=== PATIENT | male | born 1990 | race Caucasian/White ===

== ENCOUNTER 2018-12-19 15:52 | Emergency (ER) | payer BC ==
--- OUTSIDE RECORDS SUMMARY | 2018-12-19 15:57 | XMS REPORT | Continuity of Care Document ---
:1990 Author Organization [facility] Address [address], [place] [id number] Phone Care Team Providers Name Role Phone Saundra LINK CUTTERFrancisca Unavailable Unavailable [facility], NURSE OR MA Unavailable Unavailable Allergies, Adverse Reactions, Alerts Substance Reaction Status No Known Allergies Active Medications Medication Instructions Dosage Effective Dates (start - stop) Status Comments No Drug Therapy Prescribed Problems Condition Effective Dates (start - Clinical Status Comments stop) Human immunodeficiency virus [HIV] - counseling Encounter for screening for human - immunodeficiency virus Human immunodeficiency virus [HIV] - counseling Encounter for screening for human - immunodeficiency virus Encntr screen for infections w sexl mode of transmiss Human immunodeficiency virus [HIV] - counseling Encounter for screening for human - immunodeficiency virus Human immunodeficiency virus [HIV] - counseling Encounter for screening for human - immunodeficiency virus Encntr screen for infections w sexl mode of transmiss Procedures Procedure Date PREVENTIVE COUNSELING, 8-14 Minutes HIV-1/HIV-2, SINGLE ASSAY [facility] [facility].Svc. STI INJECTION OR LAB ONLY VISIT EST OTHER Medical Services Results Test Name Date and Time Measure Units Reference Range Abnormal Flag Status Comments No information Advance Directives Directive Yes / No Effective Date File Name No information Encounters Encounter Practice Location Reason(s) Diagnoses Date Provider Providers Description For Visit Copied on Encounter PREVENTIVE [facility] Nov- Saundra Referring COUNSELING, [facility] [place] immunodeficiency 7- Francisca. Provider: 8-14 Minutes Southern virus [HIV] [address] [facility] [place] Bianca [place], [address], [address] [place] human [place] [address] [place], [place] [address], [place], [address]. [id number], [place]. tel: [place] tel: [phone] tel: [phone] sulting [phone] Provider: NURSE OR MA [facility]. [facility] Higinio-2 Saundra Referring [facility] [place] immunodeficiency 4-201 Francisca. Provider: Southern virus [HIV] [address] [facility] [place] Saundra Khalil [facility], [address], [address] [place] human [place] [address] [place], [place], [place] [address], [place], [address]. [id number], [place]. tel: [place] tel: [phone] tel: [phone] [facility] Encntr screen for Higinio-0 White Referring [facility] [place] infections w sexl [place]. Provider: Southern mode of [address] trans[place], [address], [address] [place] virus [HIV] [place], St, [place], [place], [place] [address], [place], [address]. [id number], human [place]. [place] immunodeficiency tel:+ [phone] [facility] Dec- Saundra Referring [facility] [place] immunodeficiency 9- Franc[place]a. Provider: Southern virus [HIV] [address] [facility] [place] Khalil [facility], [address] [place], [address], [place] screen [address], [place], [address]. [id number], for infections w [place]. tel:+[phone] [place] sexl mode of tel: [phone] tel:[phone] transmiss [phone] Family History Family Member Diagnosis Age At Onset No information Immunizations Vaccine Date Status Comments No information Payers Payer name Insurance type Covered constitution party ID Authorization(s) [facility] [id number] Social History Type Description Quantity Date Captured Comments Alcohol Use Details Unknown Caffeine Use Details Unknown Tobacco Use Status Unknown Smoking Status Former smoker Non-Smoking Tobacco : No Details Available : No Details Available 2018 Use Details Sex Male Vital Signs Date / Height Weight BMI Pulse Blood Temperature Respiratory Body Head BMI Pulse Inhaled Time: Rate Pressure Rate Surface Circumference percentile Ox Ox Area No information Chief Complaint And Reason For Visit No information Reason For Referral Reason For Referral No information Plan Of Treatment Date Type Action Status No information History Of Present Illness Encounter Date Complaint History Of Present Illness No information Functional Status Date Functional Assessment No information Medications Administered Medication Instructions Dosage Effective Dates (start - stop) Status Comments No Drug Therapy Prescribed Instructions Date Instruction Additional Information No information Assessments Type Assessment Date assessment Human immunodeficiency virus [HIV] counseling assessment Encounter for screening for human immunodeficiency virus 2018 Goals Health Concern Goal Type Priority Status Date No information Medical Equipment Description Device [place] Device Identifier Effective Dates (start - stop ) Status No information Mental Status Date Cognitive Assessment No information Health Concerns Observation Date No information Concern Status Date No information
[2018-12-19 16:00] VITALS: BP 172/83
--- NOTE | 2018-12-19 16:02 | UC ---
Respiratory Complaint HPI - HPI Summary HPI Summary: 28 y/o male presents to the urgent care c/o C/O FEELING "WINDED" FOR ~1 WEEK, WORSE WITH EXERTION. HX ASTHMA CHILD. STATES HIS "LUNGS HURT" WITH DEEP INSIRATION. HAS ALSO HAD SLIGHT COUGH. - History of Current Complaint Chief Complaint: UCRespiratory Stated Complaint: COUGH Time Seen by Provider: 12/19/18 16:01 Hx Obtained From: Patient Pain Intensity: 3 - Allergies/Home Medications Allergies/Adverse Reactions: Allergies Allergy/AdvReac Type Severity Reaction Status Date / Time bee venom protein (honey bee) Allergy Severe Anaphylatic Verified 12/19/18 16:00 Shock Home Medications: Home Medications Pseudoephedrine TAB* [Sudafed TAB*] 60 mg PO PRN 12/19/18 [History] PMH/Surg Hx/FS Hx/Imm Hx - Surgical History Surgical History: Yes Surgery Procedure, Year, and Place: APPENDECTOMY - Family History Known Family History: Negative: Cardiac Disease, Respiratory Disease - Social History Alcohol Use: None Substance Use Type: None Substance Use Comment - Amount & Last Used: daily to sleep Smoking Status (MU): Current Every Day Smoker Amount Used/How Often: VAPES Physical Exam - Summary Physical Exam Summary: Vital Signs Reviewed: Yes General: well developed, well nourished male sitting in the examining table w/o any apparent distress Eyes: Positive: Conjunctiva Clear - PERRLA, EOMI, fundi grossly normal ENT: Positive: Normal ENT inspection, Hearing grossly normal, Pharynx normal, Nasal congestion - edematous and erythematous nasal mucosa, Nasal drainage - yellowish drainage, TMs normal. Negative: Tonsillar swelling, Tonsillar exudate Neck: Positive: Supple, Nontender, No Lymphadenopathy Respiratory: no orthopnea or dyspnea. Able to speak in full sentences, no retractions or accessory muscle use, no tripod position, stridor, or head bobbing. Positive breath sounds bilaterally. diffuse scattered wheezing and rhonchi on b/L lungs, no crackles or rales. Cardiovascular: Positive: RRR, No Murmur, Pulses Normal, Brisk Capillary Refill Abdomen Description: Positive: Nontender, No Organomegaly, Soft. Negative: CVA Tenderness (R), CVA Tenderness (L) Bowel Sounds: Positive: Present Musculoskeletal Exam: Normal Musculoskeletal: Positive: Strength Intact, ROM Intact, No Edema Neurological Exam: Normal Psychological Exam: Normal Skin Exam: Normal Triage Information Reviewed: Yes Vital Signs: Initial Vital Signs Temp 98.5 F 12/19/18 15:56 Pulse 87 12/19/18 15:56 Resp 16 12/19/18 15:56 BP 172/83 12/19/18 15:56 Pulse Ox 100 12/19/18 15:56 Respiratory Course/Dx - Differential Dx/Diagnosis Differential Diagnosis/HQI/PQRI: Asthma, Bronchitis, Influenza, Lower Resp Infection, Sinusitis Provider Diagnosis: Bronchitis, Asthma exacerbation, Elevated BP without diagnosis of hypertension Discharge - Sign-Out/Discharge Documenting (check all that apply): Patient Departure - d/C home All imaging exams completed and their final reports reviewed: Yes - Discharge Plan Condition: Stable Disposition: HOME Prescriptions: Albuterol HFA INHALER* [Ventolin HFA Inhaler*] 1 - 2 puff INH Q6H PRN #1 mdi PRN Reason: Wheezing Azithromyxin PARAS (NF) [Z-Paras (Zithromax) 250 mg tabs #6] 2 tab PO .TODAY, THEN 1 DAILY #6 tab predniSONE TAB* [Deltasone 20 MG TAB*] 20 mg PO DAILY #8 tab Patient Education Materials: Asthma (ED), Acute Bronchitis (ED) Referrals: Mandy Andrade NP [Primary Care Provider] - 3 Days Additional Instructions: 1- Take Prednisone PO taper dose as directed starting tomorrow. First loading dose given today. Take the Z-paras PO as directed to alleviate bronchitis 2-Use albuterol inhaler w/ aerochamber to alleviate SOB, and wheezing as directed . Increase fluid intake, rest and eat well. 3- If symptoms do not improve or worsen or your develop SOB with fever and severe wheezing please go immediately to the ER further evaluation and treatment. 4- F/u with your PCP in 2-3 days for further management on your Asthma 5-Your BP is elevated today. Please take your BP medications and decrease salt in your diet, monitor BP and if it continues to be elevated please f/u with your PCP for further management. If you develop chest pain, dizziness, visual disturbances, SOB, or severe GARRETT please go immediately to the ER for further management - Billing Disposition and Condition Condition: STABLE Disposition: Home
[2018-12-19] MEDS ORDERED: Albuterol/Ipratropium NEB.SOL* Albuterol 2.5 MG/Ipratropium 0.5 MG 3 ML INH ONE (16:25)
[2018-12-19] MEDS ORDERED: predniSONE TAB* 20 MG PO ONE (16:25)
== END 2018-12-19 17:15 | disposition home or self-care (01) ==
LOC: UCEAST 15:52
DX: J45.901 Unspecified asthma with (acute) exacerbation (principal); R03.0 Elevated blood-pressure reading, without diagnosis of hypertension; F17.200 Nicotine dependence, unspecified, uncomplicated; Z91.030 Bee allergy status
CPT/HCPCS: 71046; 87651; 99212; A9270-GY; G0463; J7512

== ENCOUNTER 2019-08-22 20:53 | Observation (INO) | payer BC ==
[2019-08-22 21:37] LABS: ABS Basophils 0.1 10^3/ul (0-0.2); ABS Eosinophils 0.2 10^3/ul (0-0.6); ABS Lymphocytes 2.9 10^3/ul (1.0-4.8); ABS Monocytes 0.7 10^3/ul (0-0.8); ABS Neutrophils 5.7 10^3/ul (1.5-7.7); Eosinophil % 1.7 %; Hematocrit 44 % (42-52); Lymphocyte % 30.4 %; Mean Corpuscular HGB Conc 34 g/dL (31-36); Mean Corpuscular Hemoglobin 32 pg (27-31); Mean Corpuscular Volume 94 fL (80-94); Mean Platelet Volume 7.1 fL (7.4-10.4); Nucleated Red Blood Cells % 0.1; Platelet Count 308 10^3/uL (150-450); Red Blood Count 4.67 10^6 /uL (4.18-5.48); Red Cell Distribution Width 13 % (10-15); White Blood Count 9.5 10^3/uL (3.5-10.8)
[2019-08-22 21:53] LABS: Albumin 4.8 g/dL (3.2-5.2); BUN/Creatinine Ratio 14.4 (8-20); Calcium 9.5 mg/dL (8.6-10.3); EGFR African American 123.4 (>60); Globulin 2.4 g/dL (2-4); Potassium 3.8 mmol/L (3.5-5.0); Total Bilirubin 0.2 mg/dL (0.2-1.0); Total Protein 7.2 g/dL (6.4-8.9)
--- NOTE | 2019-08-22 22:00 | ED ---
HPI Cardiac - HPI Summary HPI Summary: Pt is a 28 y/o M presenting to the ED with a chief complaint of chest pain initially onset with a URI about 1 week ago. He reports nml URI sx, including slightly productive cough with yellow mucous, nasal congestion, rhinorrhea, and some SOB. Since about 2 days ago, hes had episodes of sharp pain in the L side of his chest accompanied by palpitations and shortness of breath. The pain radiates to his back. He thought it was pneumonia so he went to urgent care where they did an EKG and told him to come here. Sx aggravated by smoking and deep breaths. Denies edema or pain in legs. Hx asthma. - History of Current Complaint Chief Complaint: EDChestPainROMI Stated Complaint: DIFFICULTY BREATHING PER PT Time Seen by Provider: 08/22/19 21:50 Hx Obtained From: Patient Onset/Duration: Started Days Ago, Still Present Timing: Intermittent, Lasting Hours Initial Severity: Mild Current Severity: None Pain Intensity: 0 Pain Scale Used: 0-10 Numeric Chest Pain Location: Left Anterior Chest Pain Radiates: No Character: Sharp/Stabbing, Other: - palpitations Aggravating Factor(s): Deep Breaths, Other: - smoking Alleviating Factor(s): Nothing Associated Signs and Symptoms: Positive: Chest Pain, Shortness of Breath, Lightheadedness, Palpitations, Productive Cough, Nasal Congestion. Negative: Calf Pain/Swelling - Allergy/Home Medications Allergies/Adverse Reactions: Allergies Allergy/AdvReac Type Severity Reaction Status Date / Time bee venom protein (honey bee) Allergy Severe Anaphylatic Verified 08/22/19 20:58 Shock PMH/Surg Hx/FS Hx/Imm Hx Previously Healthy: Yes Endocrine/Hematology History: Denies: Hx Diabetes Cardiovascular History: Denies: Hx Hypertension, Hx Pacemaker/ICD Respiratory History: Reports: Hx Asthma - CHILDHOOD Denies: Hx Chronic Obstructive Pulmonary Disease (COPD) History: Denies: Hx Renal Disease Neurological History: Denies: Hx Seizures Psychiatric History: Denies: Hx Substance Abuse - Surgical History Surgery Procedure, Year, and Place: APPENDECTOMY Infectious Disease History: No Infectious Disease History: Denies: Hx Hepatitis, Hx Human Immunodeficiency Virus (HIV), Traveled Outside the [place] in Last 30 Days - Family History Known Family History: Negative: Cardiac Disease, Respiratory Disease - Social History Alcohol Use: None Hx Substance Use: Yes Substance Use Type: Reports: Cocaine, Marijuana Substance Use Comment - Amount & Last Used: daily to sleep Hx Tobacco Use: Yes Smoking Status (MU): Heavy Every Day Tobacco Smoker Amount Used/How Often: VAPES Review of Systems Positive: Nasal Discharge Positive: Palpitations, Chest Pain Positive: Shortness Of Breath, Cough Negative: Myalgia, Edema Neurological: Other - slight lightheadedness All Other Systems Reviewed And Are Negative: Yes Physical Exam - Summary Physical Exam Summary: Appearance: Well-appearing, Well-nourished, lying in bed comfortably Skin: Warm, dry, no obvious rash Eyes: sclera anicteric, no conjunctival pallor ENT: mucous membranes moist, pharynx appears normal Neck: Supple, nontender Respiratory: Diffuse expiratory wheezes bilaterally, no signs of respiratory distress Cardiovascular: Irregularly irregular rhythm that is somewhat fast. Normal distal pulses in tibial and radial bilaterally. Abdomen: Soft, nontender, normal active bowel sounds present Musculoskeletal: Normal, Strength/ROM Intact Neurological: A&Ox3, awake and alert, mentation is normal, speech is fluent and appropriate Psychiatric: affect is normal, does not appear anxious or depressed Triage Information Reviewed: Yes Vital Signs On Initial Exam: Initial Vitals Temp Pulse Resp BP Pulse Ox 98.3 F 111 16 150/104 99 08/22/19 20:54 08/22/19 20:54 08/22/19 20:54 08/22/19 20:54 08/22/19 20:54 Vital Signs Reviewed: Yes Procedures - Sedation Patient Received Moderate/Deep Sedation with Procedure: No Diagnostics - Vital Signs Vital Signs Temp Pulse Resp BP Pulse Ox 08/22/19 20:54 98.3 F 111 16 150/104 99 - Laboratory Lab Results: Lab Results 08/22/19 08/22/19 08/22/19 Range/Units 21:29 21:30 21:30 WBC 9.5 (3.5-10.8) 10^3/uL RBC 4.67 (4.18-5.48) 10^6 /uL Hgb 15.0 (14.0-18.0) g/dL Hct 44 (42-52) % MCV 94 (80-94) fL MCH 32 H (27-31) pg MCHC 34 (31-36) g/dL RDW 13 (10-15) % Plt Count 308 (150-450) 10^3/uL MPV 7.1 L (7.4-10.4) fL Neut % (Auto) 59.3 % Lymph % (Auto) 30.4 % Rock % (Auto) 7.4 % Eos % (Auto) 1.7 % Baso % (Auto) 1.2 % Absolute Neuts (auto) 5.7 (1.5-7.7) 10^3/ul Absolute Lymphs (auto) 2.9 (1.0-4.8) 10^3/ul Absolute Monos (auto) 0.7 (0-0.8) 10^3/ul Absolute Eos (auto) 0.2 (0-0.6) 10^3/ul Absolute Basos (auto) 0.1 (0-0.2) 10^3/ul Absolute Nucleated RBC 0.0 10^3/ul Nucleated RBC % 0.1 Sodium 140 (135-145) mmol/L Potassium 3.8 (3.5-5.0) mmol/L Chloride 103 (101-111) mmol/L Carbon Dioxide 28 (22-32) mmol/L Anion Gap 9 (2-11) mmol/L BUN 13 (6-24) mg/dL Creatinine 0.90 (0.67-1.17) mg/dL Est GFR ( Amer) 123.4 (>60) Est GFR (Non-Af Amer) 102.0 (>60) BUN/Creatinine Ratio 14.4 (8-20) Glucose 108 H (70-100) mg/dL Lactic Acid 0.8 (0.5-2.0) mmol/L Calcium 9.5 (8.6-10.3) mg/dL Total Bilirubin 0.20 (0.2-1.0) mg/dL AST 14 (13-39) U/L ALT 8 (7-52) U/L Alkaline Phosphatase 56 (34-104) U/L Troponin I Pending Total Protein 7.2 (6.4-8.9) g/dL Albumin 4.8 (3.2-5.2) g/dL Globulin 2.4 (2-4) g/dL Albumin/Globulin Ratio 2.0 (1-3) TSH Pending Result Diagrams: 08/22/19 21:30 08/22/19 21:29 Lab Statement: Any lab studies that have been ordered have been reviewed, and results considered in the medical decision making process. - Radiology CXR Radiology Interpretation Completed By: ED Physician Summary of Radiographic Findings: No acute process. Pending official radiology report. - CT CTA Chest/Thorax CT Interpretation Completed By: Radiologist Summary of CT Findings: No acute findings. ED physician has reviewed this report. - EKG 2101 Cardiac Rate: Other Rate - 111bpm EKG Rhythm: Atrial Fibrillation ST Segment: Other Ectopy: None Summary of EKG Findings: EKG at 2101 shows atrial fibrillation at 111 BPM, P waves, QRS complex, ST elevations, T waves and intervals are normal, no ischemic changes. Consistent with EKG done at . ED physician has reviewed and interpreted this EKG. Disposition - Course Course Of Treatment: Pt is a 28 y/o M presenting to the ED with a chief complaint of chest pain initially onset with a URI about 1 week ago. He reports nml URI sx, including slightly productive cough with yellow mucous, nasal congestion, rhinorrhea, and some SOB. Since about 2 days ago, hes had episodes of sharp pain in the L side of his chest accompanied by palpitations and shortness of breath. Sx aggravated by smoking and deep breaths. Denies edema or pain in legs. Hx asthma. Physical exam shows irregularly irregular rhythm that is slightly fast. CXR shows no acute process, pending official radiology report. EKG at 2101 shows atrial fibrillation at 111 BPM, P waves, QRS complex , ST elevations, T waves and intervals are normal, no ischemic changes. Consistent with EKG done at . ED physician has reviewed and interpreted this EKG. CTA Chest/Thorax shows no acute findings. I spoke with Dr. Sparrow about the pt's presenting condition at 0137. She will evaluate pt for admission in the ED. Dx is AFib w/ RVR. - Diagnoses Provider Diagnoses: Atrial fibrillation with RVR - Physician Notifications Discussed Care Of Patient With: Kay Sparrow Time Discussed With Above Provider: 01:37 Instructed by Provider To: Admit As Inpatient - Critical Care Time Critical Care Time: 30-74 min - 30min Discharge ED - Sign-Out/Discharge Documenting (check all that apply): Patient Departure - Discharge Plan Condition: Stable Disposition: ADMITTED TO [facility] - Billing Disposition and Condition Condition: STABLE Disposition: Admitted to [facility] - Attestation Statements Document Initiated by Young: Yes Documenting Scribe: Pilar Trejo Provider For Whom Young is Documenting (Include Credential): Asim Arnold MD. Scribe Attestation: Pilar Cross, coreyed for Asim Arnold MD. on 08/23/19 at 0317. Scribe Documentation Reviewed: Yes Provider Attestation: The documentation as recorded by the coreye, Pilar Trejo accurately reflects the service I personally performed and the decisions made by me, Asim Arnold MD. Status of Scribe Document: Viewed
[2019-08-22 22:08] LABS: TSH (Thyroid Stimulating Horm) 1.18 mcIU/mL (0.34-5.60)
[2019-08-22] MEDS ORDERED: Albuterol 2.5 MG/3 ML NEB.SOL* (0.083%) INH ONE (22:41)
[2019-08-22] MEDS ORDERED: methylPREDNISolone 125 MG* 2 ML VIAL IV ONE (22:41)
[2019-08-23] MEDS ORDERED: Diltiazem IV push/loading dose 5 MG/ML 5 ML vial (25 mg) IV SLOW PU ONE (00:03)
[2019-08-23] MEDS ORDERED: Diltiazem IV BAG* D5W Premix 125 MG/125 ML BAG IV ONE (00:03)
[2019-08-23] MEDS ORDERED: Iohexol 350* (CONTRAST) 500 ML MDV IV ONE (00:15)
[2019-08-23] MEDS: Nicotine* 2MG (FRUIT FLAVOR) GUM PO PRN ×2 (03:17→09:27)
--- NOTE | 2019-08-23 03:39 | HP ---
History of Present Illness - History of Present Illness Reason for Visit: chest pain History of Present Illness: 28 yo male with hx of drug abuse came in with complaints of left sided pleuritic chest pain. Chest pain started 2 days ago after he was binge drinking and snorted a few lines of cocaine.He had been sober for 10 years before this relapse, and he thought he did too many drugs at once which is why his chest was hurting. Because the pain persister past 2 days after his one time use, he came to the ED to be evaluated. He was worried he was developing a PNA especially since he has been having some Upper respiratory symptoms for a while. Pt found to be in Afib with RVR in the ED with elevated blood pressure. CTA rule out PE. EKG showed possible ST elevation vs early repolarization. Initial Troponins are flat. - Past Medical History Psych: Addictions - Past Surgical History Past Surgical History: None - Past Family History Family History: CAD - Past Social History Smoke: No Drugs: Cocaine Lives: Alone Review of Systems - Measurements Intake and Output: Intake and Output Last 24 Hours 08/20/19 08/21/19 08/22/19 08/23/19 06:59 06:59 06:59 06:59 Weight 185 lb - Review of Systems Constitutional Symptoms: Negative: Weight Gain, Weight Loss, Weakness, Fatigue, Fever, Night Sweats, Unexplained Falls, Other Dermatology: Negative: Normal, Rash, Skin Lesions, Cancer, Skin Lumps, Other HEENT: Negative: Normal, Change in Hearing, Vertigo, Dental Problems, Tinnitus, Sinus Problem, Other Eyes: Negative: Normal, Change in Vision, Double Vision, Eye Pain, Glaucoma, Cataract, Contacts or Glasses, Other Thyroid: Negative: Normal, Goiter, Thyroid Nodule, Cold Intolerance, Heat Intolerance , Sweatiness, Tremor, Frequent Defecation, Constipation, Palpitations, Primary Hypothyroidism, Primary Hyperthyroidism, Weight Loss, Weight Gain, Change in Skin/Hair, Change in Menstruation, Radiation Exposure, Other Pulmonary: Positive: Cough Cardiology: Positive: Chest Pain, Shortness of Breath, Palpitations Gastroenterology: Negative: Normal, Abdominal Pain, Nausea, Vomiting, Anorexia, Indigestion, Difficulty Swallowing, Heartburn, Constipation, Diarrhea, Blood in Stools, Change in Bowel Habits, Haematemesis, Melena, Other Genital - Urinary: Negative: Normal, Dysuria, Hematuria, Polyuria, Nocturia, Other Neurology: Negative: Normal, Headache, Migraines, Change in Vision, Diplopia, Dizziness , Change in Balancing, Change in Coordination, Change in Memory, Change in Speech, Change in Sphincter Function, Change in Walking, Numbness\Paresthesiae, Unexplained Weakness, Hx of Stroke\TIA, Hx of Seizures, Other Psychiatry: Negative: Normal, Depression, Anxiety, Depressed Mood, Anhedonia, Sexual Dysfunction, Weight Change, Guilt Feelings, Tearfulness, Unusual Fatigue, Unusual Anxiety, Suicidal Ideation, Hypomania, Eating Disorders, Other Objective Active Medications: Heparin Sodium (Porcine) (Heparin Vial(*)) 5,000 units SUBCUT Q8HR KALYN Diltiazem/Dextrose (Cardizem Iv D5w Bag* Premix) 125 mg in 125 mls @ 5 mls/hr IV ED ONCE ONE; Protocol Stop: 08/24/19 01:02 Last Admin: 08/23/19 00:58 Dose: 5 mls/hr Sodium Chloride (Ns 0.9% 1000 Ml) 1,000 mls @ 125 mls/hr IV Q8H AKLYN Nicotine Polacrilex (Nicotine Gum*) 2 mg PO Q2H PRN PRN Reason: CRAVING Last Admin: 08/23/19 03:17 Dose: 2 mg Vital Signs - 8 hr 08/22/19 08/22/19 08/22/19 20:54 21:22 21:23 Temperature 98.3 F Pulse Rate 111 104 115 Respiratory 16 24 17 Rate Blood Pressure 150/104 136/105 (mmHg) O2 Sat by Pulse 99 98 99 Oximetry 08/22/19 08/22/19 08/22/19 21:28 21:53 22:00 Temperature Pulse Rate 99 101 97 Respiratory 22 17 21 Rate Blood Pressure 139/86 140/105 (mmHg) O2 Sat by Pulse 99 98 99 Oximetry 08/22/19 08/22/19 08/22/19 22:23 23:03 23:23 Temperature Pulse Rate 94 115 124 Respiratory 36 18 Rate Blood Pressure 138/106 123/89 (mmHg) O2 Sat by Pulse 97 100 100 Oximetry 08/22/19 08/23/19 08/23/19 23:33 00:00 00:07 Temperature Pulse Rate 98 174 149 Respiratory 18 14 16 Rate Blood Pressure 154/103 (mmHg) O2 Sat by Pulse 99 100 100 Oximetry 1208/23/19 08/23/19 00:23 01:00 01:13 Temperature Pulse Rate 109 202 98 Respiratory 23 23 Rate Blood Pressure 132/88 136/89 (mmHg) O2 Sat by Pulse 100 100 97 Oximetry 08/23/19 08/23/19 08/23/19 01:18 01:22 01:33 Temperature Pulse Rate 115 112 106 Respiratory 20 20 Rate Blood Pressure 125/102 140/88 (mmHg) O2 Sat by Pulse 100 100 98 Oximetry 08/23/19 08/23/19 08/23/19 01:47 02:00 02:03 Temperature Pulse Rate 103 116 123 Respiratory 18 17 13 Rate Blood Pressure 146/88 128/75 (mmHg) O2 Sat by Pulse 96 98 96 Oximetry 08/23/19 08/23/19 08/23/19 02:17 02:32 02:48 Temperature Pulse Rate 118 123 124 Respiratory 18 19 19 Rate Blood Pressure 135/101 146/91 118/86 (mmHg) O2 Sat by Pulse 97 97 99 Oximetry 08/23/19 08/23/19 08/23/19 03:00 03:02 03:17 Temperature Pulse Rate 109 133 112 Respiratory 13 20 14 Rate Blood Pressure 125/84 125/80 (mmHg) O2 Sat by Pulse 97 98 97 Oximetry Appearance: NID Eyes: No Scleral Icterus, PERRLA Ears/Nose/Mouth/Throat: Mucous Membranes Moist Neck: NL Appearance and Movements; NL JVP, Trachea Midline Respiratory: Symmetrical Chest Expansion and Respiratory Effort, Clear to Auscultation, Clear to Percussion Cardiovascular: - - irregularly irreegular, tachycardia Abdominal: NL Sounds; No Tenderness; No Distention Lymphatic: No Cervical Adenopathy Extremities: No Edema, No Clubbing, Cyanosis Skin: No Rash or Ulcers, No Nodules or Sclerosis Neurological: Alert and Oriented x 3, NL Sensation, NL Gait, NL Muscle Strength and Tone Result Diagrams: 08/22/19 21:30 08/22/19 21:29 Additional Lab and Data: Lab Results 08/22/19 08/22/19 08/22/19 Range/Units 21:29 21:30 21:30 WBC 9.5 (3.5-10.8) 10^3/uL RBC 4.67 (4.18-5.48) 10^6 /uL Hgb 15.0 (14.0-18.0) g/dL Hct 44 (42-52) % MCV 94 (80-94) fL MCH 32 H (27-31) pg MCHC 34 (31-36) g/dL RDW 13 (10-15) % Plt Count 308 (150-450) 10^3/uL MPV 7.1 L (7.4-10.4) fL Neut % (Auto) 59.3 % Lymph % (Auto) 30.4 % [place] % (Auto) 7.4 % Eos % (Auto) 1.7 % Baso % (Auto) 1.2 % Absolute Neuts (auto) 5.7 (1.5-7.7) 10^3/ul Absolute Lymphs (auto) 2.9 (1.0-4.8) 10^3/ul Absolute Monos (auto) 0.7 (0-0.8) 10^3/ul Absolute Eos (auto) 0.2 (0-0.6) 10^3/ul Absolute Basos (auto) 0.1 (0-0.2) 10^3/ul Absolute Nucleated RBC 0.0 10^3/ul Nucleated RBC % 0.1 Sodium 140 (135-145) mmol/L Potassium 3.8 (3.5-5.0) mmol/L Chloride 103 (101-111) mmol/L Carbon Dioxide 28 (22-32) mmol/L Anion Gap 9 (2-11) mmol/L BUN 13 (6-24) mg/dL Creatinine 0.90 (0.67-1.17) mg/dL Est GFR ( Amer) 123.4 (>60) Est GFR (Non-Af Amer) 102.0 (>60) BUN/Creatinine Ratio 14.4 (8-20) Glucose 108 H (70-100) mg/dL Lactic Acid 0.8 (0.5-2.0) mmol/L Calcium 9.5 (8.6-10.3) mg/dL Total Bilirubin 0.20 (0.2-1.0) mg/dL AST 14 (13-39) U/L ALT 8 (7-52) U/L Alkaline Phosphatase 56 (34-104) U/L Troponin I Pending Total Protein 7.2 (6.4-8.9) g/dL Albumin 4.8 (3.2-5.2) g/dL Globulin 2.4 (2-4) g/dL Albumin/Globulin Ratio 2.0 (1-3) TSH Pending Assess/Plan/Problems-Billing Assessment: - Patient Problems (1) Atrial fibrillation with rapid ventricular response Current Visit: Yes Status: Acute Code(s): I48.91 - UNSPECIFIED ATRIAL FIBRILLATION SNOMED Code(s): 613907442380994 Comment: likely secondary to drug abuse. repeat EKG within a few hours Echo in the am drug screen pending. IVF aspirin, Cardizem drip (2) Full code status Current Visit: Yes Status: Acute Code(s): Z78.9 - OTHER SPECIFIED HEALTH STATUS SNOMED Code(s): 856944722 (3) DVT prophylaxis Current Visit: Yes Status: Acute Code(s): Z29.9 - ENCOUNTER FOR PROPHYLACTIC MEASURES, UNSPECIFIED SNOMED Code(s): 099697197 Comment: heparin sc (4) Drug abuse Current Visit: Yes Status: Acute Code(s): F19.10 - OTHER PSYCHOACTIVE SUBSTANCE ABUSE, UNCOMPLICATED SNOMED Code(s): 08220852 Comment: started in his early teens, stated he had bee sober for about 10 years until this recent relapse.
[2019-08-23] MEDS ORDERED: Nitroglycerin TAB 0.3 MG* 0.3 MG TAB SL PRN (03:46)
[2019-08-23] MEDS ORDERED: Aspirin 81 mg CHEW TAB* 81 MG TAB.CHEW PO ONE (03:46)
[2019-08-23] MEDS ORDERED: LORazepam INJ* 2 MG/ML 1 ML VIAL IV PUSH ONE (03:56)
[2019-08-23] MEDS ORDERED: Lorazepam PYXIS KEY PRN (03:56)
[2019-08-23 04:25] LABS: Urine Benzodiazepine Screen None Detected (None Detect); Urine Opiates Screen None Detected (None Detect)
[2019-08-23] MEDS ORDERED: NS 0.9% 1000 ML** 1,000 ML IV SCH (05:30)
[2019-08-23] MEDS ORDERED: Heparin VIAL(*) 5000 UNITS/ML VIAL (FIVE THOUSAND) SUBCUT SCH (06:00)
[2019-08-23 06:17] LABS: ABS Lymphocytes 0.7 10^3/ul (1.0-4.8); ABS Monocytes 0.1 10^3/ul (0-0.8); ABS Neutrophils 13.4 10^3/ul (1.5-7.7); ABS Nucleated RBC 0.1 10^3/ul; Hematocrit 44 % (42-52); Hemoglobin 15.1 g/dL (14.0-18.0); Mean Corpuscular HGB Conc 34 g/dL (31-36); Mean Corpuscular Hemoglobin 32 pg (27-31); Mean Corpuscular Volume 93 fL (80-94); Mean Platelet Volume 7.1 fL (7.4-10.4); Nucleated Red Blood Cells % 0.4; Platelet Count 332 10^3/uL (150-450); Red Blood Count 4.77 10^6 /uL (4.18-5.48); Red Cell Distribution Width 13 % (10-15); White Blood Count 14.3 10^3/uL (3.5-10.8)
[2019-08-23 06:19] LABS: BUN/Creatinine Ratio 16.3 (8-20); Calcium 9.6 mg/dL (8.6-10.3); EGFR African American 141.4 (>60); EGFR Non-African American 116.9 (>60)
[2019-08-23] MEDS ORDERED: NS 0.9% 1000 ML** 1,000 ML IV ONE (06:42)
[2019-08-23 09:38] VITALS: BP 126/88
[2019-08-23] MEDS ORDERED: Metoprolol Tartrate TAB* 25 MG PO SCH (10:00)
--- NOTE | 2019-08-23 11:50 | ECHO ---
*[facility]* [place] [address] Fax #: [phone] Transthoracic Echocardiogram Patient: Jose Sigala : 1990 Study Date: 08/23/2019 Age: 28 Gender: M HR: 80 bpm Height: 71 in /180.3 cm BSA: 2.04 m^2 Weight: 184.6 lb /83.9 kg BMI: 25.8 kg/m^2 *Nuclear Reactor Technician: * Ashely Nicole *Referring Physician: * Kay Sparrow *Reading Physician: * Michael Goff MD Indications: Chest Pain, unspecified. History: Risk factors: Cocaine abuse. Current tobacco use. Conclusions Summary: - Left ventricle: Systolic function is normal. The estimated ejection fraction is 60-65%. Wall motion is normal; there are no regional wall motion abnormalities. - Mitral valve: There is trace regurgitation. - Aortic valve: There is no evidence of stenosis. - Tricuspid valve: There is mild regurgitation. - Pulmonary arteries: Systolic pressure is within the normal range. - Study data: No prior study is available for comparison. Study data: Transthoracic echocardiogram. Procedure: Transthoracic echocardiography was performed. Image quality was excellent. Complete 2D, spectral Doppler, and color flow Doppler. Location: Bedside. Patient status: Inpatient. Patient room number: 449. No prior study is available for comparison. Findings Left ventricle: The cavity size is normal. Wall thickness is normal. Systolic function is normal. The estimated ejection fraction is 60-65%. Wall motion is normal; there are no regional wall motion abnormalities. Left ventricular diastolic function parameters are normal. Right ventricle: The cavity size is at the upper limits of normal. Wall thickness is normal. Systolic function is normal. Left atrium: The atrium is normal in size. Right atrium: The atrium is normal in size. Mitral valve: The valve is structurally normal. There is no evidence of stenosis. There is trace regurgitation. Aortic valve: The valve is trileaflet. The leaflets are normal thickness. There is no evidence of stenosis. There is no significant regurgitation. Tricuspid valve: The leaflets are normal thickness. There is no evidence of stenosis. There is mild regurgitation. Pulmonic valve: The leaflets are normal thickness. There is no evidence of stenosis. There is trace regurgitation. Aorta: The aortic arch appears normal. Pericardium: There is no pericardial effusion. Pulmonary arteries: Systolic pressure is within the normal range. Systemic veins: Inferior vena cava: The vessel is normal in size. Pulmonary veins: The Pulmonary veins appear normal. Measurements Left ventricle Value Ref Aortic valve Value Ref MARVEL, LAX 4.3 cm 4.2 - Peak v, S 1.22 m/sec ----- 5.8 VTI, S 26.2 cm ----- ESD, LAX 2.8 cm 2.5 - Mean grad, S 3.0 mm Hg ----- 4.0 Peak grad, S 6.0 mm Hg ----- FS, LAX 35 % 25 - 43 LIZBETH, VTI 3.13 cm^2 ----- PW, ED, LAX (H) 1.3 cm 0.6 - LIZBETH, Vmax 3.06 cm^2 ----- 1.0 E', lat kalyan, TDI 15.5 cm/sec >=10.0 Mitral valve Value Ref E/e', lat kalyan, TDI 6 -------- Peak E 0.96 m/sec -- --- E', med kalyan, TDI 14.5 cm/sec >=7.0 Peak A 0.44 m/sec ----- E/e', med kalyan, TDI 7 -------- Decel time 201 ms -- --- E', avg, TDI 15.0 cm/sec -------- Peak grad, D 3.7 mm Hg -- --- E/e', avg, TDI 6 <=14 Peak E/A ratio 2.2 ----- LVOT Value Ref Pulmonic valve Value Ref Diam, S 2.00 cm -------- Peak v, S 0.89 m/sec ----- Area 3.1 cm^2 -------- Peak grad, S 3.0 mm Hg ----- Peak jovanny, S 1.19 m/sec -------- Peak grad, S 6 mm Hg -------- Tricuspid valve Value Ref Mean grad, S 3 mm Hg -------- TR peak v 2.1 m/sec <=2. 8 SV 79 ml -------- Peak RV-RA grad, S 18 mm Hg ----- SV/bsa 39 ml/m^2 -------- Max TR jovanny 2.16 m/sec ----- Ventricular septum Value Ref Aortic root Value Ref IVS, ED (H) 1.4 cm 0.6 - Root diam 3.3 cm <3.7 1.0 Ascending aorta Value Ref Right ventricle Value Ref AAo AP diam, S 2.9 cm ----- MARVEL, LAX 3.4 cm -------- AAo AP diam/bsa, S 1.4 cm/m^2 ----- MARVEL minor ax, A4C (H) 4.5 cm 1.9 - mid 3.5 Aortic arch Value Ref Arch diam 1.9 cm ----- Left atrium Value Ref ML dim, A4C 4.3 cm -------- Decending aorta Value Ref SI dim, A4C 4.5 cm -------- Dvaid peak jovanny 1.35 m/sec ----- Vol/bsa, ES, 1-p 21 ml/m^2 12 - 37 A4C Inferior vena cava Value Ref Vol/bsa, ES, A/L 24 ml/m^2 16 - 34 Diam 2.1 cm ----- Right atrium Value Ref SI dim, ES 5.3 cm 3.4 - 5.3 ML dim, ES, A4C 3.7 cm 2.6 - 4.4 SI dim, ES, A4C 5.3 cm 3.4 - 5.3 SI dim/bsa, ES, 2.6 cm/m^2 1.8 - A4C 3.0 Legend: (L) and (H) peyman values outside specified reference range. Prepared and electronically signed by Michael Goff MD 08/23/2019 11:49
--- NOTE | 2019-08-23 14:18 | DS ---
CC: Dr. Devaughn Dhillon * DISCHARGE SUMMARY: DATE OF ADMISSION: DATE OF DISCHARGE: 08/23/19 HISTORY OF PRESENT ILLNESS/HOSPITAL COURSE: This 28-year-old man presented with left-sided pleuritic chest pain that had started 2 days ago, the history states he was binge drinking and had some cocaine as well. He said he had been sober for 10 years before this relapse. He also gave a history of drinking very large amounts of coffee 1 pot or sometimes more than 1 pot a day. He had an episode 4 months ago, which was not observed by any medical personnel in which he was short of breath and weak for half a day or several hours; he said this was very similar to the way he felt this time. Other than that, there was really no significant past medical history. The patient converted to normal sinus rhythm spontaneously. He had an echocardiogram which is essentially normal. I spoke to the patient about various things in his lifestyle that might affect risk of atrial fibrillation; alcohol, cocaine use, and excessive caffeine use among them. He should also avoid [id number] adrenergic compounds. I spoke to his father who had experienced many episodes of atrial fibrillation until he had an ablation which pretty much solved his problems. Father was very concerned that the patient would be going down that route. It is quite an open question as to whether or not atrial fibrillation will be a significant part of this patient's history particularly if he avoids some chemical agents that could exacerbate atrial fibrillation. I recommended that the patient look into getting a 4-week Holter monitor as an outpatient. He can either do this through his primary care physician or ask for a referral to a local chef concierge. FINAL DIAGNOSES: 1. Atrial fibrillation. 2. History of substance abuse. 3. Asthma. DISCHARGE MEDICATIONS: Levalbuterol HFA inhaler 1 puff every 4 hours p.r.n. CONDITION ON DISCHARGE: Improved. DISPOSITION ON DISCHARGE: Discharged home. [id number]/[facility] #: [id number] FREDDIE
== END 2019-08-23 13:30 | disposition home or self-care (01) ==
LOC: ED 20:53 → INTOOBSV 08-23 02:37 → EDHOLD 08-23 02:37 → MEDTELE 08-23 08:08
PROVIDERS: ADMIT Student in an Organized Health Care Education/Training Program; ATTEND Internal Medicine
DX: I48.91 Unspecified atrial fibrillation (principal); J45.909 Unspecified asthma, uncomplicated; F19.10 Other psychoactive substance abuse, uncomplicated; R06.02 Shortness of breath; R42 Dizziness and giddiness; F17.210 Nicotine dependence, cigarettes, uncomplicated; R94.31 Abnormal electrocardiogram [ECG] [EKG]
CPT/HCPCS: 36415; 71046; 71275; 80048; 80053; 80307; 83605; 84443; 84484; 85025; 85379; 87040; 93005; 93306; 96374; 96375; 99283; A9270-GY; G0378; J2060; J2930; J3490; Q9967

== ENCOUNTER 2019-08-25 19:19 | Emergency (ER) | payer BC ==
[2019-08-25 19:29] VITALS: BP 145/100
== END 2019-08-25 20:35 | disposition left against medical advice (07) ==
LOC: ED 19:19
DX: R07.9 Chest pain, unspecified (principal); Z53.21 Procedure and treatment not carried out due to patient leaving prior to being seen by health care provider
CPT/HCPCS: 93005; 99281

== ENCOUNTER 2019-11-11 09:50 | Emergency (ER) | payer BC ==
--- NOTE | 2019-11-11 10:20 | ED ---
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 Patient states he went to sleep around 2100 yesterday 11/10, and woke up at 0600 today 11/11 feeling anxious. He states he usually takes deep breaths and is able to calm himself down but he was not able to do so today. Patient states his symptoms have improved since initial onset but he is still having some chest pain. The patient rates the pain 2/10 in severity. Symptoms aggravated by nothing. Symptoms alleviated by nothing. Patient has had similar symptoms in the past and was admitted to the ICU last time. Medications reviewed. Allergies noted. Home Medications Medication Instructions Recorded Confirmed Type Levalbuterol HFA INHALER* [Xopenex 1 puff INH Q4H PRN #1 mdi 08/23/19 Rx Hfa Inhaler*] - History of Current Complaint Chief Complaint: EDDysrhythmPalp Stated Complaint: CHEST PAIN/PALPITATIONS/SOB PER PT Time Seen by Provider: 11/11/19 10:05 Hx Obtained From: Patient Onset/Duration: Started Hours Ago - 0811/11/2019, Still Present Timing: Constant Initial Severity: Moderate Current Severity: Mild Pain Intensity: 2 Pain Scale Used: 0-10 Numeric Aggravating Factor(s): Nothing Alleviating Factor(s): Nothing - Additional Pertinent History Primary Care Physician: [id number] - Allergy/Home Medications Allergies/Adverse Reactions: Allergies Allergy/AdvReac Type Severity Reaction Status Date / Time bee venom protein (honey bee) Allergy Severe Anaphylatic Verified 11/11/19 10:12 Shock Home Medications: Home Medications Levalbuterol HFA INHALER* [Xopenex Hfa Inhaler*] 1 puff INH Q4H PRN #1 mdi 08/23 [Rx Confirmed 11/11/19] PMH/Surg Hx/FS Hx/Imm Hx Endocrine/Hematology History: Denies: Hx Diabetes Cardiovascular History: Reports: Hx Atrial Fibrillation Denies: Hx Hypertension Respiratory History: Reports: Hx Asthma - CHILDHOOD Denies: Hx Chronic Obstructive Pulmonary Disease (COPD) Neurological History: Denies: Hx Headaches, Hx Seizures Psychiatric History: Reports: Hx Anxiety, Hx Depression Denies: Hx Attention Deficit Hyperactivity Disorder, Hx Eating Disorder, Hx Panic Disorder, Hx Post Traumatic Stress Disorder, Hx Inpatient Treatment, Hx Community Mental Health Tx, Hx Schizophrenia, Hx Bipolar Disorder, Hx Suicide Attempt, Hx of Violent Episodes Against Others, Hx Substance Abuse, Other Psychiatric Issues/Disorders - Surgical History Surgery Procedure, Year, and Place: APPENDECTOMY Infectious Disease History: Denies: Hx Hepatitis, Hx Human Immunodeficiency Virus (HIV) - Family History Known Family History: Positive: Other - father has atrial fibrillation - Social History Alcohol Use: None Hx Substance Use: Yes Substance Use Type: Reports: Cocaine, Marijuana Hx Tobacco Use: Yes Smoking Status (MU): Heavy Every Day Tobacco Smoker Review of Systems Positive: Other - heaviness in his bilateral upper and lower extremities Positive: Palpitations, Chest Pain Positive: Shortness Of Breath Neurological/Mental Status: Other - Dizziness All Other Systems Reviewed And Are Negative: Yes Physical Exam - Summary Physical Exam Summary: Appearance: The patient is well-nourished in no acute distress and in no acute pain. Skin: The skin is warm and dry, and skin color reflects adequate perfusion. HEENT: The head is normocephalic and atraumatic. The pupils are equal and reactive. The conjunctivae are clear and without drainage. Nares are patent and without drainage. Mouth reveals moist mucous membranes, and the throat is without erythema and exudate. The external ears are intact. The ear canals are patent and without drainage. The tympanic membranes are intact. Neck: The neck is supple with full range of motion and non-tender. There are no carotid bruits. There is no neck vein distension. Respiratory: Chest is non-tender. Lungs are clear to auscultation and breath sounds are symmetrical and equal. Cardiovascular: Heart is regular rate and rhythm. There is no murmur or rub auscultated. There is no peripheral edema and pulses are symmetrical and equal. Abdomen: The abdomen is soft and non-tender. There are normal bowel sounds heard in all four quadrants and there is no organomegaly palpated. Musculoskeletal: There is no back tenderness noted. Extremities are non-tender with full range of motion. There is good capillary refill. There is no peripheral edema or calf tenderness elicited. Neurological: Patient is alert and oriented to person, place and time. The patient has symmetrical motor strength in all four extremities. Cranial nerves are grossly intact. Deep tendon reflexes are symmetrical and equal in all four extremities. Psychiatric: The patient has an appropriate affect and does not exhibit any anxiety or depression. Triage Information Reviewed: Yes Vital Signs Reviewed: Yes Procedures - Sedation Patient Received Moderate/Deep Sedation with Procedure: No Diagnostics - Laboratory Result Diagrams: 11/11/19 10:28 11/11/19 10:28 Lab Statement: Any lab studies that have been ordered have been reviewed, and results considered in the medical decision making process. - EKG 0953 Cardiac Rate: NL EKG Rhythm: Sinus Rhythm EKG Comparison: No Significant Change - 08/24/2019 Summary of EKG Findings: Early repolarization. ED physician has reviewed and interpreted this EKG Re-Evaluation - Re-Evaluation First Eval Re-Evaluation Time: 12:30 Change: Improved - patient's symptoms have resolved he is agreeable to discharge Disposition - Course Course Of Treatment: Mr. Sigala experienced the same symptoms this morning that he had experienced before and during his recent admission for atrial fibrillation. By the time he gets here they are resolved. He has not used any substances. Was kept on a monitor here and remained in normal sinus rhythm with normal labs. I recommended follow-up with his sql tech. His father has a history of atrial fibrillation also necessitating an ablation and this is more likely than substance use to be the etiology. - Diagnoses Provider Diagnoses: Palpitations Discharge ED - Sign-Out/Discharge Documenting (check all that apply): Patient Departure - Discharge Plan Condition: Stable Disposition: HOME Patient Education Materials: Heart Palpitations (ED) Referrals: [facility] [Outside] - 2 Days Additional Instructions: Follow up with [facility] in 2-3 days. Return to the Emergency Department for new or worsening symptoms. - Billing Disposition and Condition Condition: STABLE Disposition: Home - Attestation Statements Document Initiated by Scribe: Yes Documenting Scribe: Loren Castillo Provider For Whom Young is Documenting (Include Credential): Asim Chavez MD Scribe Attestation: Loren Cross, scribed for Asim Chavez MD on 11/11/19 at 2013. Scribe Documentation Reviewed: Yes Provider Attestation: The documentation as recorded by the Loren glover accurately reflects the service I personally performed and the decisions made by , Asim Chavez MD Status of Scribe Document: Viewed
--- OUTSIDE RECORDS SUMMARY | 2019-11-11 10:26 | XMS REPORT | Continuity of Care Document ---
:1990 External Reference #:[id number] Author Name Efrem Schmidt M.D. Address [address] [place] [address] Problems Active Problems Provider Date Acute non-suppurative otitis media - serous Danica Cuellar NP Onset: 2009 Asthma without status asthmaticus Danica Cuellar NP Onset: 06/22/2010 Social History Type Date Description Comments Sex Unknown Tobacco Use Start: Unknown current cigarette smoker smokes / PPD Tobacco Use Start: Unknown End: Former Cigarette Smoker quit Oct 2015 Unknown ETOH Use Denies alcohol use ETOH Use Denies alcohol use Recreational Drug Use Denies Drug Use Recreational Drug Use Sporadically uses Marijuana Tobacco Use Start: Unknown Patient is a current smoker, smokes every day Enjoy Exercising Enjoys exercising Enjoy Exercising Enjoys exercising Allergies, Adverse Reactions, Alerts Active Allergies Reaction Severity Comments Date Bees Anaphalaxis 06/22/2010 Medications Active Medications SIG Qnty Indications Ordering Date Provider Clindamycin HCL take 1 capsule by 21caps J01.90 Devaughn 10/29/2019 300mg mouth every 8 hours MD Alejo Capsules for 7 days Nebulizer, Home 1 use to inhale 1units Devaughn 12/25/2018 medications as MD Alejo directed Epipen 2-Moi inject one pen if 2packs V15.06 Shawnti R. 08/25/2009 stung by bee then ABEL TurpinP-C 0.3mg/0.3ML (1:1000 call 911 Device Epipen 2-Moi use if needed for 2units Shawnti R. bee sting ABEL TurpinP-C 0.3mg/0.3ML Solution Auto-Inject Levalbuterol Inhale 1 puff Into Unknown Tartrate Lungs Every 4 Hours 45mcg/Act as Needed For Aerosol Shortness Of Breath History Medications Augmentin 1 take by mouth 20tabs J01.90 Devaughn iWlburade, 10/29/2019 - 875-125mg tablet every 12 MD 10/29/2019 Tablets hours for 10 days for infection Doxycycline Hyclate 1 tab by mouth 42tabs J01.90 Devaughn Oseasswapna, 2019 - twice a day 10/29/2019 100mg Tablets Immunizations CPT Code Status Date Vaccine Lot # [id number] Given 09/27/2019 Influenza Virus Vaccine, Quadrivalent, 3 Yr > [id number] Quad, Preserv Free [id number] Refused 08/24/2019 Influenza Virus Vaccine, Quadrivalent, 3 Yr > Quad , Preserv Free Vital Signs Date Vital Result Comment 10/30/2019 9:40am Weight 175.00 lb Weight 79.380 kg BP Systolic 118 mmHg BP Diastolic 70 mmHg Heart Rate 74 /min Body Temperature 97.9 F Respiratory Rate 16 /min O2 % BldC Oximetry 95 % 10/29/2019 2:56pm Weight 180.00 lb Weight 81.648 kg BP Systolic 140 mmHg BP Diastolic 88 mmHg Heart Rate 97 /min Body Temperature 98.8 F Respiratory Rate 16 /min O2 % BldC Oximetry 96 % Results Test Acquired Date Facility Test Result H/L Range Note CBC Auto 10/29/2019 [facility] White Blood 8.2 10^3/ uL Normal 3.5-10.8 Diff [phone] Count Red Blood Count 4.60 10^6/uL Normal 4.18-5.48 Hemoglobin 15.0 g/dL Normal 14.0-18.0 Hematocrit 43 % Normal 42-52 Mean Corpuscular Volume 94 fL Normal 80-94 Mean Corpuscular Hemoglobin 33 pg High 27-31 Mean Corpuscular HGB Conc 35 g/dL Normal 31-36 Red Cell Distribution Width 13 % Normal 10-15 Platelet Count 366 10^3/uL Normal 150-450 Mean Platelet Volume 7.7 fL Normal 7.4-10.4 Abs Neutrophils 4.6 10^3/uL Normal 1.5-7.7 Abs Lymphocytes 2.7 10^3/uL Normal 1.0-4.8 Abs Monocytes 0.5 10^3/uL Normal 0-0.8 Abs Eosinophils 0.3 10^3/uL Normal 0-0.6 Abs Basophils 0.1 10^3/uL Normal 0-0.2 Abs Nucleated RBC 0.0 10^3/uL Granulocyte % 56.7 % Lymphocyte % 33.2 % Monocyte % 6.2 % Eosinophil % 3.2 % Basophil % 0.7 % Nucleated Red Blood Cells % 0.0 Comp Metabolic 10/29/2019 [facility] Sodium 139 mmol/ L Normal 135-145 Panel [phone] Potassium 4.4 mmol/L Normal 3.5-5.0 Chloride 106 mmol/L Normal 101-111 Co2 Carbon Dioxide 29 mmol/L Normal 22-32 Anion Gap 4 mmol/L Normal 2-11 Glucose 83 mg/dL Normal 70-100 Blood Urea Nitrogen 13 mg/dL Normal 6-24 Creatinine 0.88 mg/dL Normal 0.67-1.17 BUN/Creatinine Ratio 14.8 Normal 8-20 Calcium 9.8 mg/dL Normal 8.6-10.3 Total Protein 7.4 g/dL Normal 6.4-8.9 Albumin 5.1 g/dL Normal 3.2-5.2 Globulin 2.3 g/dL Normal 2-4 Albumin/Globulin Ratio 2.2 Normal 1-3 Total Bilirubin 0.30 mg/dL Normal 0.2-1.0 Alkaline Phosphatase 57 U/L Normal 34-104 Alt 13 U/L Normal 7-52 Ast 16 U/L Normal 13-39 Egfr Non- 103.9 >60 Egfr 125.7 >60 1 Laboratory test finding 09/13/2019 In House Lab Strep PCR NEG (607)- - 1 Because ethnic data is not always readily available, this report includes an eGFR for both -Americans and non- Americans. The National Kidney Disease Education Program (NKDEP) does not endorse the use of the MDRD equation for patients that are not between the ages of 18 and 70, are , have extremes of body size, muscle mass, or nutritional status, or are non- or non-. According to the National Kidney Foundation, irrespective of diagnosis, the stage of the disease is based on the level of kidney function: Stage Description GFR(mL/min/1.73 m(2)) 1 Kidney damage with normal or decreased GFR 90 2 Kidney damage with mild decrease in GFR 60-89 3 Moderate decrease in GFR 30-59 4 Severe decrease in GFR 15-29 5 Kidney failure <15 (or dialysis) Procedures Date Code Description Status 08/25/2019 75457 EKG, at Least 12 Leads w/Interpretation and Report Completed 08/24/2019 42158 EKG, at Least 12 Leads w/Interpretation and Report Completed Medical Devices Description No Information Available Encounters Type Date Location Provider Dx Diagnosis Office Visit 10/13/2019 Main Office Devaughn Dhillon A69.20 Lyme disease, 9:45a unspecified J01.90 Acute sinusitis, unspecified J06.9 Acute upper respiratory infection, unspecified Office Visit 09/27/2019 9:30a Main Office Devaughn Dhillon J01.90 Acute sinusitis, unspecified Z23 Encounter for immunization Office Visit 09/13/2019 1:45p Main Office Gwen Kennedy J02.9 Acute pharyngitis, Wayne, R.D. unspecified H66.91 Otitis media, unspecified, right ear J45.909 Unspecified asthma, uncomplicated Office Visit 08/25/2019 4:45p Main Office Jennie Alba R07.9 Chest pain, Wayne Mcmahon unspecified I48.0 Paroxysmal atrial fibrillation S50.861A Insect bite (nonvenomous) of right forearm, init encntr Office Visit 08/24/2019 3:45p Main Office Cammie Newberry NP R07.1 Chest pain on breathing Assessments Date Code Description Provider 10/30/2019 K21.9 Gastro-esophageal reflux disease Efrem Schmidt M.D. without esophagitis 10/29/2019 J01.90 Acute sinusitis, loboified Devaughn Dhillon MD 10/13/2019 A69.20 Lyme disease, kenzie Dhillon MD 10/13/2019 J01.90 Acute sinusitis, kenzie Dhillon MD 10/13/2019 J06.9 Acute upper respiratory infection, Devaughn Dhillon MD unspecified 09/27/2019 J01.90 Acute sinusitis, kenzie Dhillon MD 09/27/2019 Z23 Encounter for immunization Devaughn Dhillon MD 09/13/2019 J02.9 Pharyngitis Gwen Kennedy M.D., R.D. 09/13/2019 H66.91 Otitis media Gwen Kennedy M.D., R.D. 09/13/2019 J45.909 Asthma Gwen Kennedy M.D., R.D. 08/25/2019 R07.9 Chest pain, unspecified Jennie Mcmahon M.D. 08/25/2019 I48.0 Paroxysmal atrial fibrillation Jennie Mcmahon M.D. 08/25/2019 S50.861A Insect bite (nonvenomous) of right Jennie Mcmahon M.D. forearm, initial encounter 08/24/2019 R07.1 Chest pain on breathing Jennie Mcmahon M.D. 08/24/2019 R07.1 Chest pain on breathing Cammie Newberry NP Plan of Treatment 10/30/2019 - Efrem Schmidt M.D.K21.9 Gastro-esophageal reflux disease without esophagitisComments:Suspect that this was an episode of reflux triggered by clindamycin.He will try using Pepto-Bismol for the pain. For now we will plan to try and continue with clindamycin but if he has recurrent symptoms he will call and we can consider alternate medication.He has no follow-up scheduled and we discussed that if his symptoms are not improving over the next couple of weeks I encouraged him to return for further follow-up. Functional Status Description No Information Available Mental Status Description No Information Available Referrals Refer to Reason for Referral Status Appt Date [facility] REFERAL TO CARDIOLOGY PER [facility] [place] [facility] Closed 2018 INTERMITTENT, PERSISTENT LEFT-SIDED CHEST PAIN W/ SOB - - Please contact Pt to schedule appt. - - Please fax appointment date/time to [facility], [phone]. [address] [place] [address] [phone]
--- OUTSIDE RECORDS SUMMARY | 2019-11-11 10:26 | XMS REPORT | Continuity of Care Document ---
:1990 External Reference #:[id number] Author Name Devaughn Dhillon MD Address [address] [place] [address] Problems Active Problems Provider Date Acute non-suppurative [...] Medications SIG Qnty Indications Ordering Date Provider Doxycycline Hyclate 1 tab by mouth 42tabs J01.90 Devaughn 09/27/2019 twice a day MD Alejo 100mg Tablets Nebulizer, Home 1 use to inhale 1units Devaughn 12/25/2018 medications as MD Alejo directed Epipen 2-Moi inject one pen if 2packs V15.06 Shawnti R. 08/25/2009 stung by bee then Papi VIBRATING SCREED OPERATOR-C 0.3mg/0.3ML (1:1000 call 911 Device Epipen 2-Moi use if needed for 2units Shawnti R. bee sting Papi VIBRATING SCREED OPERATOR-C 0.3mg/0.3ML Solution Auto-Inject Levalbuterol Inhale 1 puff Into Unknown Tartrate Lungs Every 4 Hours 45mcg/Act as Needed For Aerosol Shortness Of Breath Immunizations CPT Code Status Date Vaccine Lot # [id number] Given 09/27/2019 Influenza Virus Vaccine, Quadrivalent, 3 Yr > [id number] Quad, Preserv Free [id number] Refused 08/24/2019 Influenza Virus Vaccine, Quadrivalent, 3 Yr > Quad , Preserv Free Vital Signs Date Vital Result Comment 10/13/2019 9:48am Weight 176.00 lb Weight 79.834 kg BP Systolic 120 mmHg BP Diastolic 80 mmHg Heart Rate 88 /min Body Temperature 98.7 F Respiratory Rate 16 /min O2 % BldC Oximetry 97 % 09/27/2019 9:29am Weight 179.00 lb Weight 81.194 kg BP Systolic 124 mmHg BP Diastolic 62 mmHg Heart Rate 64 /min Body Temperature 98.9 F Respiratory Rate 16 /min Results Test Acquired Date Facility Test Result H/L Range Note Laboratory test finding 09/13/2019 In House Lab Strep PCR NEG (607)- - Procedures Date Code Description Status 08/25/2019 91911 EKG, at Least 12 Leads w/Interpretation and Report Completed 08/24/2019 20419 EKG, at Least 12 Leads w/Interpretation and Report Completed Medical Devices Description No Information Available Encounters Type Date Location Provider Dx Diagnosis Office Visit 09/27/2019 Main Office Devaughn Dhillon J01.90 Acute sinusitis, 9:30a unspecified Z23 Encounter for immunization Office Visit 09/13/2019 1:45p Main Office Gwen Kennedy J02.9 Acute pharyngitis, M.D., R.D. unspecified H66.91 Otitis media, unspecified, right ear J45.909 Unspecified asthma, uncomplicated Office Visit 08/25/2019 4:45p Main Office Jennie Alba R07.9 Chest pain, Blegen, M.D. unspecified I48.0 Paroxysmal atrial fibrillation S50.861A Insect bite (nonvenomous) of right forearm, init encntr Office Visit 08/24/2019 3:45p Main Office Cammie Newberry NP R07.1 Chest pain on breathing Assessments Date Code Description Provider 10/13/2019 A69.20 Lyme disease, unspecified Devaughn Dhillon MD 10/13/2019 J01.90 Acute sinusitis, unspecified Devaughn Dhillon MD 10/13/2019 J06.9 Acute upper respiratory infection, Devaughn Dhillon MD unspecified 09/27/2019 J01.90 Acute sinusitis, unspecified Devaughn Dhillon MD 09/27/2019 Z23 Encounter for immunization [...] breathing Cammie Newberry NP Plan of Treatment 10/13/2019 - Devaughn Dhillon, MDA69.20 Lyme disease, unspecifiedComments: Improving daily. One week of doxy left.J01.90 Acute sinusitis, unspecifiedComments:Gradual improvement.J06.9 Acute upper respiratory infection , unspecifiedComments:Upper respiratory infection complicating recovery from his other issues. No historical or physical evidence of serious or bacterial infection.Recommended continued use of OTC meds for symptom control, hydration, rest, and discussed alarm symptoms. Functional Status Description No Information Available Mental Status Description No Information Available Referrals Refer to Reason for Referral Status Appt Date [facility] REFERAL TO CARDIOLOGY PER [facility] [place] [facility] [place] 2018 INTERMITTENT, PERSISTENT LEFT-SIDED CHEST PAIN W/ SOB - - Please contact Pt to schedule appt. - - Please fax appointment date/time to [facility], [phone]. [address] [place] [address] [phone]
--- OUTSIDE RECORDS SUMMARY | 2019-11-11 10:26 | XMS REPORT | Continuity of Care Document ---
:1990 External Reference #:[id number] Author Name Devaughn Dhillon MD Address [address] [place] [address] Problems Active Problems Provider Date Acute non-suppurative [...] R. 08/25/2009 stung by bee then Papi MEDICAL OFFICER-C 0.3mg/0.3ML (1:1000 call 911 Device Epipen 2-Moi use if needed for 2units Shawnti R. bee sting Papi MEDICAL OFFICER-C 0.3mg/0.3ML Solution Auto-Inject Levalbuterol Inhale 1 puff Into Unknown Tartrate Lungs Every 4 Hours 45mcg/Act as Needed For Aerosol Shortness Of Breath History Medications Augmentin 1 take by mouth 20tabs J01.90 Devaughn Dhillon, 10/29/2019 - 875-125mg tablet every 12 MD 10/29/2019 Tablets hours for 10 days for infection Doxycycline Hyclate 1 tab by mouth 42tabs J01.90 Devaughn Dhillon, 2019 - twice a day 10/29/2019 100mg Tablets Immunizations CPT Code Status Date Vaccine Lot # [id number] Given 09/27/2019 Influenza Virus Vaccine, Quadrivalent, 3 Yr > [id number] Quad, Preserv Free [id number] Refused 08/24/2019 Influenza Virus Vaccine, Quadrivalent, 3 Yr > Quad , Preserv Free Vital Signs Date Vital Result Comment 10/29/2019 2:56pm Weight 180.00 lb Weight 81.648 kg BP Systolic 140 mmHg BP Diastolic 88 mmHg Heart Rate 97 /min Body Temperature 98.8 F Respiratory Rate 16 /min O2 % BldC Oximetry 96 % 10/13/2019 9:48am Weight 176.00 lb Weight 79.834 kg BP Systolic 120 mmHg BP Diastolic 80 mmHg Heart Rate 88 /min Body Temperature 98.7 F Respiratory Rate 16 /min O2 % BldC Oximetry 97 % Results Test Acquired Date Facility Test Result H/L Range Note Laboratory test finding 09/13/2019 In House Lab Strep PCR NEG (607)- - Procedures Date Code Description Status 08/25/2019 46168 EKG, at Least 12 Leads w/Interpretation and Report Completed 08/24/2019 82181 EKG, at Least 12 Leads w/Interpretation and Report Completed Medical Devices Description No Information Available Encounters Type Date Location Provider Dx Diagnosis Office Visit 10/13/2019 Main Office Devaughn Dhillon A69.20 Lyme disease, 9:45a unspecified J01.90 Acute sinusitis, unspecified J06.9 Acute upper respiratory infection, unspecified Office Visit 09/27/2019 9:30a Main Office Remi Berg01.90 Acute sinusitis, unspecified Z23 Encounter for immunization Office Visit 09/13/2019 1:45p Main Office Remi Betancourt02.9 Acute pharyngWayne solis, R.D. unspecified H66.91 Otitis media, unspecified, right ear J45.909 Unspecified asthma, uncomplicated Office Visit 08/25/2019 4:45p Main Office Jennie Alba R07.9 Chest pain, Wayne Mcmahon unspecified I48.0 Paroxysmal atrial fibrillation S50.861A Insect bite (nonvenomous) of right forearm, init encntr Office Visit 08/24/2019 3:45p Main Office Cammie Newberry NP R07.1 Chest pain on breathing Assessments Date Code Description Provider 10/29/2019 J01.90 Acute sinusitis, unspecified Devaughn Dhillon MD 10/13/2019 A69.20 Lyme disease, loboified Devaughn Dhillon MD 10/13/2019 J01.90 Acute sinusitis, loboified Devaughn Dhillon MD 10/13/2019 J06.9 Acute upper [...] 08/24/2019 R07.1 Chest pain on breathing Cammie Nweberry NP Plan of Treatment 10/29/2019 - Devaughn Dhillon MDJ01.90 Acute sinusitis, unspecifiedNew Medication:Clindamycin HCL 300 mg - take 1 capsule by mouth every 8 hours for 7 daysAugmentin 875-125 mg - 1 take by mouth tablet every 12 hours for 10 days for infectionNew Xrays:Chest PA 2 Views, Ordered: 10/29/19Comments:This is begun to be quite an extended course for a supposedly acute bacterial illness.We will add some lab testing and repeat the chest x-ray given focal findings today.I will also start him on a shortcourse of clindamycin, his symptoms are still extremely consistent with a sinus infection. Functional Status Description No Information Available Mental Status Description No Information Available Referrals Refer to Reason for Referral Status Appt Date [facility] REFERAL TO CARDIOLOGY PER [facility] [place] [facility] Closed 2018 INTERMITTENT, PERSISTENT LEFT-SIDED CHEST PAIN W/ SOB - - Please contact Pt to schedule appt. - - Please fax appointment date/time to [facility], [phone]. [address] [place] [address] [phone]
[2019-11-11 10:35] LABS: ABS Basophils 0.1 10^3/ul (0-0.2); ABS Eosinophils 0.1 10^3/ul (0-0.6); ABS Lymphocytes 2.2 10^3/ul (1.0-4.8); ABS Monocytes 0.5 10^3/ul (0-0.8); ABS Neutrophils 3.9 10^3/ul (1.5-7.7); Hematocrit 42 % (42-52); Hemoglobin 14.8 g/dL (14.0-18.0); Lymphocyte % 31.8 %; Mean Corpuscular HGB Conc 35 g/dL (31-36); Mean Corpuscular Hemoglobin 33 pg (27-31); Mean Corpuscular Volume 93 fL (80-94); Platelet Count 319 10^3/uL (150-450); Red Blood Count 4.56 10^6 /uL (4.18-5.48); Red Cell Distribution Width 13 % (10-15); White Blood Count 6.9 10^3/uL (3.5-10.8)
[2019-11-11 10:46] LABS: INR 1.09 (0.82-1.09)
[2019-11-11 10:53] LABS: Albumin/Globulin Ratio 2.2 (1-3); Calcium 9.7 mg/dL (8.6-10.3); EGFR African American 129.1 (>60); EGFR Non-African American 106.7 (>60); Globulin 2.3 g/dL (2-4); Total Bilirubin 0.4 mg/dL (0.2-1.0); Total Protein 7.3 g/dL (6.4-8.9)
[2019-11-11 12:36] VITALS: BP 149/98
== END 2019-11-11 12:35 | disposition home or self-care (01) ==
LOC: ED 09:50
DX: R00.2 Palpitations (principal); I48.91 Unspecified atrial fibrillation; F41.9 Anxiety disorder, unspecified; F32.9 Major depressive disorder, single episode, unspecified; F17.200 Nicotine dependence, unspecified, uncomplicated; Z90.89 Acquired absence of other organs
CPT/HCPCS: 36415; 80053; 84484; 85025; 85610; 93005; 99283